=== PATIENT | male | born 1990 | race African-American/Black ===

== ENCOUNTER 2017-02-16 08:52 | Emergency (ER) | payer MEDICAID ==
[~2017-02-16] VITALS: Ht 175.3 cm; Wt 69.5 kg
[2017-02-16 08:55] VITALS: Ht 175.3 cm; Wt 69.5 kg
--- NOTE | 2017-02-16 09:46 | RADRPT ---
PROCEDURE: Noncontrast CT facial bones. CLINICAL INDICATION: Right jaw swelling. TECHNIQUE: Noncontrast CT of the facial bones was obtained. Coronal and sagittal re-formations were provided. The administered radiation dose was CTDI vol = 29.62 mGy, DLP = 693.22 mGy-cm. One or mo re of the following dose reduction techniques were used: Automated exposure control, Adjustment of t he mA and/or kV according to patient size, or Use of iterative reconstruction technique. COMPARISON: There are no similar studies submitted for comparison. FINDINGS: There is a right mandibular subcutaneous soft tissue which measures up to 14 mm in thickness with as sociated thickening of the right platysma muscle. There is also subcutaneous edema within this marine on. OSSEOUS STRUCTURES: There is no acute fracture.No destructive osseous lesion is identified. ORBITS: The bilateral globes are intact.There is no orbital hematoma. SINUSES: The paranasal sinuses are well aerated. SKULL: The visualized portions of the brain are unremarkable. IMPRESSION: 1. Right mandibular subcutaneous soft tissue with associated right platysma muscle thickening as we ll as subcutaneous edema. This is indeterminate but may be related to cellulitis/myositis phlegmono us changes. Subcutaneous lesion is not entirely excluded. A subcutaneous hematoma is less likely wi thout history of trauma. There is no adjacent right mandibular osseous erosions. Short-term follow- up imaging may be performed to document resolution. 2. The bilateral globes are intact without orbital hematoma. 3. No acute fracture. Further findings as detailed above. RPTAT: PP .Ceasar Sahu MD, Date Time Electronically viewed and signed by .Ceasar Sahu MD, on 02/16/2017 09:46 .F/
--- NOTE | 2017-02-16 10:15 | ERA ---
ER Documentation Chief Complaint Date/Time DATE: 02/16/17 TIME: 10:14 Chief Complaint Complains of jaw pain and swelling x 3 days HPI This is a 26-year-old otherwise healthy male presenting with a chief complaint of right facial swelling. Patient has had facial swelling 2 days that is moderately tender in the right mandibular area. The patient denies difficulty breathing, dysphagia, change in voice, drooling, fatigue, oral swelling, ear pain, hearing changes, headache or meningismus. Patients vaccination status is up to date. Patient denies any personal or family medical history, recent hospitalization/antibiotic use, recent travel or sick contacts. ROS All systems reviewed and are negative except as per history of present illness. Medications Home Meds Active Scripts Acetaminophen* (Tylenol*) 325 Mg Tablet, 1 TAB PO Q8 Y for PAIN AND OR ELEVATED TEMP, #20 TAB Prov:BRITTNY DOW PA-C 02/16/17 Prednisone* (Prednisone*) 20 Mg Tab, 40 MG PO DAILY for 4 Days, TAB Prov:BRITTNY DOW PA-C 02/16/17 Amoxicillin/Potassium Clav (Amox-Clav 875-125 mg Tablet) 875-125 mg Tab, 1 TAB PO BID for 10 Days, #20 TAB Prov:BRITTNY DOW PA-C 02/16/17 Allergies Allergies: Coded Allergies: No Known Allergy (Unverified , 07/06/14) PMhx/Soc Medical and Surgical Hx: pt denies Medical Hx, pt denies Surgical Hx Hx Alcohol Use: Yes (SOCIAL) Hx Substance Use: No Hx Tobacco Use: Yes Smoking Status: Never smoker Physical Exam Vitals Vital Signs Date Time Temp Pulse Resp B/P Pulse Ox O2 Delivery O2 Flow Rate FiO2 02/16/17 08:55 99.6 108 20 140/87 96 Physical Exam Const: Well-appearing 26-year-old male in no acute distress. Head: Atraumatic. Normocephalic. Eyes: Normal Conjunctiva. PERRLA, EOMI bilaterally. ENT: Marked swelling starting 4 cm right to the mental process and extending to the angle of the mandible. There is no periauricular swelling or tenderness. There is tenderness over the mid part of the swelling and decreasing as palpation extends outwards. External Ears, Nose. No drooling or uvula deviation. Neck: Anterior cervical lymphadenopathy palpated bilaterally. Full range of motion..~ No meningismus. Resp: Clear to auscultation bilaterally Cardio: Regular rate and rhythm, no murmurs Abd: Soft, non tender, non distended. Normal bowel sounds Skin: No petechiae or rashes Back: No midline or flank tenderness Ext: No cyanosis, or edema Neur: Awake and alert Psych: Normal Mood and Affect Procedures/MDM Patient was evaluated and worked up for mandibular swelling is described in the history and physical examination. At this time I do not suspect diphtheria, Osmar-Goddard virus, peritonsillar abscess, epiglotittis, retropharyngeal abscess , parapharyngeal abscess, Giovanny's angina, or allergic reaction. And I no longer have suspicion for endangerment of the airway. Ultrasound was read by the radiologist and the following impression was given: 1. Right mandibular subcutaneous soft tissue with associated right platysma muscle thickening as well as subcutaneous edema. This is indeterminate but may be related to cellulitis/myositis phlegmonous changes. Subcutaneous lesion is not entirely excluded. A subcutaneous hematoma is less likely without history of trauma. There is no adjacent right mandibular osseous erosions. Short-term follow-up imaging may be performed to document resolution. ENT was consulted, who gave the recommendation of discharging with Augmentin and follow-up with PCP within the next 3 days. We will go ahead and discharge the patient at this time with Augmentin and instructions to follow-up with primary care in the next 1-3 days. His vitals are stable and is noted acute distress and I have no suspicion for endangerment of the airway. I have spoke with the patient regarding their condition and future management. They have verbally responded that they understand their status and treatment plan including the necessity of follow-up care. The patients vitals are stable , and their current condition is appropriate for discharge. The patient will be given discharge instructions with return precautions. I spoke with my attending who agrees with the assessment and plan. Departure Diagnosis: Primary Impression: Swelling Additional Impression: Facial swelling Condition: Stable Additional Instructions: Follow up with your PCP within the next 1-3 days for a more thorough evaluation and a possible referral to a specialist. Return the the emergency department immediately if symptoms worsen or change. If you have any questions regarding medications, ask your pharmacist or us before you leave. If any adverse reactions occur while taking your medications, discontinue the treatment and return to the emergency department immediately. Take your medications as directed, and complete the entire course of treatment. BRITTNY DOW PA-C Feb 16, 2017 10:15
[2017-02-16] MEDS ORDERED: AMOX1TAB10 PO (11:29)
[2017-02-16] MEDS ORDERED: PRED20TA PO (11:31)
[2017-02-16] MEDS ORDERED: ACET325T33 PO (11:32)
== END 2017-02-16 11:40 | disposition home or self-care (01) ==
LOC: FTE 08:52
DX: R60.0 Localized edema (principal); Z87.891 Personal history of nicotine dependence
CPT/HCPCS: 70486; Z7502

== ENCOUNTER 2017-03-01 14:34 | Emergency (ER) | payer MEDICAID ==
[~2017-03-01] VITALS: Ht 182.9 cm; Wt 70.0 kg
[~2017-03-01 14:34] MED LIST: ACET325T33 PO; AMOX1TAB10 PO; PRED20TA PO
[2017-03-01 14:38] VITALS: Ht 182.9 cm; Wt 70.0 kg
[2017-03-01] MEDS ORDERED: IBUP-1542 PO (15:01)
[2017-03-01] MEDS ORDERED: TYL500 PO (15:01)
--- NOTE | 2017-03-01 15:31 | ERD ---
ER Documentation Chief Complaint Date/Time DATE: 03/01/17 TIME: 15:26 Chief Complaint medication refill HPI This is a 26-year-old male presents to the ER requesting a medication refill. Patient was given antibiotics and short course of steroids 2 weeks ago when he was found to have cellulitis. Patient's symptoms have completely resolved he denies any facial pain, facial redness, facial swelling. Patient was not aware that he did not need a refill of his medications. He also came to drop off some [employer] paperwork. Patient is asymptomatic today. ROS 12 point review of systems was done, all negative except per HPI. Medications Home Meds Active Scripts Ibuprofen* (Motrin*) 600 Mg Tab, 600 MG PO Q6, #30 TAB Prov:WESLEY JEAN 03/01/17 Acetaminophen* (Tylenol*) 500 Mg Tab, 500 MG PO Q4H Y for MILD PAIN LEVEL 1-3 for 7 Days, TAB Prov:WESLEY JEAN 03/01/17 Acetaminophen* (Tylenol*) 325 Mg Tablet, 1 TAB PO Q8 Y for PAIN AND OR ELEVATED TEMP, #20 TAB Prov:BRITTNY DOW PA-C 02/16/17 Prednisone* (Prednisone*) 20 Mg Tab, 40 MG PO DAILY for 4 Days, TAB Prov:BRITTNY DOW PA-C 02/16/17 Amoxicillin/Potassium Clav (Amox-Clav 875-125 mg Tablet) 875-125 mg Tab, 1 TAB PO BID for 10 Days, #20 TAB Prov:BRITTNY DOW PA-C 02/16/17 Allergies Allergies: Coded Allergies: No Known Allergy (Unverified , 07/06/14) PMhx/Soc Medical and Surgical Hx: pt denies Medical Hx, pt denies Surgical Hx Hx Alcohol Use: Yes (SOCIAL) Hx Substance Use: No Hx Tobacco Use: Yes Smoking Status: Never smoker Physical Exam Vitals Vital Signs Date Time Temp Pulse Resp B/P Pulse Ox O2 Delivery O2 Flow Rate FiO2 03/01/17 14:38 98.2 66 19 131/69 100 Physical Exam GENERAL: The patient is well developed and appropriate for usual state of health , in no apparent distress. HEENT: Atraumatic. No facial swelling or redness, patient is not tender to palpation over the mandible. No tonsillar exudate, uvular deviation, kissing tonsils. CHEST: Clear to auscultation bilaterally. There are no rales, wheezes or rhonchi. HEART: Regular rate and rhythm. No murmurs, clicks, rubs or gallops. BACK: No midline or flank tenderness. NEURO: Alert and oriented. SKIN: The skin is warm and dry. Procedures/MDM This is a 26-year-old male presented to the ER for medication refill This time patient does not need any more antibiotics or steroids as his symptoms have completely resolved. Patient will be given some Tylenol and ibuprofen for any potential pain that he may develop. Patient's is afebrile and well-appearing. Suspicion for Giovanny's angina, dental abscess, deep space infection is low. Patient is to follow-up with his primary care doctor within 1-2 days return to ER sooner if symptoms worsen. My medical decision making shared with the patient he understands and agrees with plan. Departure Diagnosis: Primary Impression: Encounter for medication refill Condition: Stable Patient Instructions: Taking Medicine Safely Additional Instructions: Call your primary care doctor TOMORROW for an appointment during the next 1-2 days.See the doctor sooner or return here if your condition worsens before your appointment time. WESLEY JEAN Mar 01, 2017 15:31
== END 2017-03-01 15:15 | disposition home or self-care (01) ==
LOC: FTE 14:34
DX: Z76.0 Encounter for issue of repeat prescription (principal); R52 Pain, unspecified
CPT/HCPCS: 99283